=== PATIENT | male | born 1945 | race Caucasian/White ===

== ENCOUNTER 2017-11-13 19:28 | Emergency (ER) | payer MEDICARE, OTHER ==
[2017-11-13 20:02] VITALS: BP 145/72
--- NOTE | 2017-11-13 20:54 | EDM.PDOC ---
ED HPI GENERAL MEDICAL PROBLEM - General Chief Complaint: Genitourinary Problem Stated Complaint: TESTICULAR PAIN Time Seen by Provider: 11/13/17 20:40 Source of Information: Reports: Patient History Limitations: Reports: No Limitations - History of Present Illness INITIAL COMMENTS - FREE TEXT/NARRATIVE: c/o unable to void pt with laser prostate surgery 1d ago for BPH, pt removed toledo at 2 PM, voided okay, by suppertime he could not void came to ED, had a lot of pressure, he wanted to try to void one more time and a long blood clot came out then had a 2nd void in ED with a small amount of pink color, no additional clots pt lives near hospital, wants to come back if he has more difficulty, did not want a toledo placed now Groin Pain Score (Numeric/FACES): 3 - Related Data Allergies Allergy/AdvReac Type Severity Reaction Status Date / Time atorvastatin calcium AdvReac Mild muscle Verified 01/01/16 06:57 [From Lipitor] cramping rosuvastatin calcium AdvReac Mild muscle Verified 01/01/16 06:57 [From Crestor] cramping Home Meds: Home Meds Ascorbic Acid [C-1000] 1,000 mg PO DAILY 12/29/15 [History] Aspirin [Ecotrin] 325 mg PO DAILY 12/29/15 [History] Cyclobenzaprine [Flexeril] 20 mg PO BEDTIME 12/29/15 [History] Diclofenac Sodium [Voltaren] 75 mg PO BIDMEALS 12/29/15 [History] Furosemide [Lasix] 20 mg PO DAILY PRN 12/29/15 [History] Hydrochlorothiazide 25 mg PO DAILY 12/29/15 [History] Loratadine [Claritin] 10 mg PO DAILY PRN 12/29/15 [History] Losartan [Cozaar] 50 mg PO DAILY 12/29/15 [History] Nitroglycerin [Nitrostat] 0.4 mg SL ASDIRECTED PRN 12/29/15 [History] [place]-3/DHA/Epa/Fish Oil [Fish Oil 1,000 mg Softgel] 2 each PO DAILY 12/29/15 [ History] Pramipexole Di-HCl [Mirapex] 0.25 mg PO BEDTIME 12/29/15 [History] Pravastatin Sodium [Pravachol] 20 mg PO BID 12/29/15 [History] Tamsulosin [Tamsulosin 24 Hr] 0.4 mg PO DAILY 12/29/15 [History] Vitamin E 400 unit PO DAILY 12/29/15 [History] Past Medical History HEENT History: Reports: Other (See Below) Other HEENT History: has cataracts, no surgery yet Cardiovascular History: Reports: Bypass, High Cholesterol Other Cardiovascular History: BRADYCARDIA Other Respiratory History: HX OF LEFT LUNG WITH FLUID BUILD UP POST CARDIAC BYPASS WITH DRAINAGE REQUIRED Genitourinary History: Reports: Other (See Below) Other Genitourinary History: recent laser prostate surgery, in with retention, just "passes a clot" and peed, 290cc residual, will speak with md - Infectious Disease History Infectious Disease History: Reports: Chicken Pox, Measles, Mumps, Shingles - Past Surgical History HEENT Surgical History: Reports: Tonsillectomy Cardiovascular Surgical History: Reports: Coronary Artery Bypass GI Surgical History: Reports: Appendectomy, Cholecystectomy, Hernia, Inguinal Male Surgical History: Reports: Other (See Below) Other Male Surgeries/Procedures: laser prostate surgery Social & Family History - Family History Family Medical History: Noncontributory - Tobacco Use Smoking Status *Q: Former Smoker Years of Tobacco use: 5 Packs/Tins Daily: 0.5 Used Tobacco, but Quit: Yes Month Tobacco Last Used: Second Hand Smoke Exposure: No - Caffeine Use Caffeine Use: Reports: Coffee Caffeine Use Comment: 2 cups/day - Alcohol Use Days Per Week of Alcohol Use: 1 Number of Drinks Per Day: 1 Total Drinks Per Week: 1 Date of Last Drink: 10/27/17 Time of Last Drink: 20:00 - Recreational Drug Use Recreational Drug Use: No ED ROS GENERAL - Review of Systems Review Of Systems: See Below Constitutional: Reports: No Symptoms HEENT: Reports: No Symptoms Respiratory: Reports: No Symptoms Cardiovascular: Reports: No Symptoms Endocrine: Reports: No Symptoms GI/Abdominal: Reports: No Symptoms : Reports: Urinary Retention Musculoskeletal: Reports: No Symptoms Skin: Reports: No Symptoms Neurological: Reports: No Symptoms Psychiatric: Reports: No Symptoms Hematologic/Lymphatic: Reports: No Symptoms Immunologic: Reports: No Symptoms ED EXAM, GI/ABD - Physical Exam Exam: See Below Exam Limited By: No Limitations General Appearance: Alert GI/Abdominal Exam: Soft, Non-Tender, No Distention, No Mass, Other (no suprapubic tender) Back Exam: Normal Inspection, Full Range of Motion. No: CVA Tenderness (R), CVA Tenderness (L) Course - Vital Signs Last Recorded V/S: Last Vital Signs Temp 36.6 C 11/13/17 19:58 Pulse 50 L 11/13/17 19:58 Resp 18 11/13/17 19:58 BP 145/72 H 11/13/17 19:58 Pulse Ox 96 11/13/17 19:58 Departure - Departure Time of Disposition: 20:53 Disposition: Home, Self-Care 01 Condition: Good Clinical Impression: Postoperative urinary retention - Discharge Information Instructions: Acute Urinary Retention, Male Referrals: Niall Thompson MD [Primary Care Provider] - Additional Instructions: Return to ED if you have additional difficulty with voiding. See your urologist as scheduled.
== END 2017-11-13 20:57 | disposition home or self-care (01) ==
LOC: FB.ED 19:28
DX: N99.89 Other postprocedural complications and disorders of genitourinary system (principal); R33.9 Retention of urine, unspecified; Z87.891 Personal history of nicotine dependence; E78.00 Pure hypercholesterolemia, unspecified; Z79.82 Long term (current) use of aspirin; Z79.899 Other long term (current) drug therapy
CPT/HCPCS: 51798; 99282; 99283

== ENCOUNTER 2019-01-28 18:09 | Emergency (ER) | payer MEDICARE, OTHER ==
[2019-01-28] MEDS ORDERED: Sodium Chloride 0.9% 10 ML Syringe FLUSH PRN (18:32)
--- NOTE | 2019-01-28 18:39 | EDM.PDOC ---
ED HPI GENERAL MEDICAL PROBLEM - General Chief Complaint: Cardiovascular Problem Stated Complaint: CHEST PAIN Time Seen by Provider: 01/28/19 18:25 Source of Information: Reports: Patient, Family History Limitations: Reports: No Limitations - History of Present Illness INITIAL COMMENTS - FREE TEXT/NARRATIVE: Leland comes into [facility] ED with a brief episode of anterior sharp chest pains that lasted for less than a minute before subsiding. There was no associated SOB , palpitations, lt headiness, sweats, GI upset or cough. He reports a PMH of CAD , status post 3v CABG about 3 years ago in [place]. Of interest is a relapse of leg pains earlier today radiating from the ankles to the buttocks which improved with some stretches and ambulation. He has had similar pains in the past. There is no PMH of PVD or DVT. He was transferred by ambulance, administered ASA and TNG by EMS personnel. Upon arrival, he is asx. - Related Data Allergies Allergy/AdvReac Type Severity Reaction Status Date / Time atorvastatin calcium AdvReac Mild muscle Verified 01/28/19 18:37 [From Lipitor] cramping rosuvastatin calcium AdvReac Mild muscle Verified 01/28/19 18:37 [From Crestor] cramping Home Meds: Home Meds Ascorbic Acid [C-1000] 1,000 mg PO DAILY 12/29/15 [History] Aspirin [Ecotrin] 325 mg PO DAILY 12/29/15 [History] Furosemide [Lasix] 20 mg PO DAILY PRN 12/29/15 [History] Loratadine [Claritin] 10 mg PO DAILY PRN 12/29/15 [History] Losartan [Cozaar] 50 mg PO DAILY 12/29/15 [History] Nitroglycerin [Nitrostat] 0.4 mg SL ASDIRECTED PRN 12/29/15 [History] [place]-3/DHA/Epa/Fish Oil [Fish Oil 1,000 mg Softgel] 2 each PO DAILY 12/29/15 [ History] Pramipexole Di-HCl [Mirapex] 0.5 mg PO BEDTIME 12/29/15 [History] Pravastatin Sodium [Pravachol] 40 mg PO BID 12/29/15 [History] Vitamin E 400 unit PO DAILY 12/29/15 [History] Acetaminophen [Tylenol Extra Strength] 1,000 mg PO BID 01/28/19 [History] Celecoxib [CeleBREX] 200 mg PO DAILY 01/28/19 [History] Pramipexole Di-HCl [Mirapex] 0.25 mg PO DAILY PRN 01/28/19 [History] Past Medical History HEENT History: Reports: Other (See Below) Other HEENT History: has cataracts, no surgery yet Cardiovascular History: Reports: Bypass, High Cholesterol Other Cardiovascular History: BRADYCARDIA Other Respiratory History: HX OF LEFT LUNG WITH FLUID BUILD UP POST CARDIAC BYPASS WITH DRAINAGE REQUIRED Genitourinary History: Reports: Other (See Below) Other Genitourinary History: recent laser prostate surgery, in with retention, just "passes a clot" and peed, 290cc residual, will speak with md - Infectious Disease History Infectious Disease History: Reports: Chicken Pox, Measles, Mumps, Shingles - Past Surgical History HEENT Surgical History: Reports: Tonsillectomy Cardiovascular Surgical History: Reports: Coronary Artery Bypass GI Surgical History: Reports: Appendectomy, Cholecystectomy, Hernia, Inguinal Male Surgical History: Reports: Other (See Below) Other Male Surgeries/Procedures: laser prostate surgery Social & Family History - Family History Family Medical History: Noncontributory - Caffeine Use Caffeine Use: Reports: Coffee Caffeine Use Comment: 2 cups/day ED ROS GENERAL - Review of Systems Review Of Systems: See Below Constitutional: Reports: No Symptoms HEENT: Reports: No Symptoms Respiratory: Reports: No Symptoms Cardiovascular: Reports: Chest Pain Endocrine: Reports: No Symptoms GI/Abdominal: Reports: No Symptoms : Reports: No Symptoms Musculoskeletal: Reports: Leg Pain Skin: Reports: No Symptoms Neurological: Reports: No Symptoms Psychiatric: Reports: No Symptoms Hematologic/Lymphatic: Reports: No Symptoms Immunologic: Reports: No Symptoms ED EXAM, GENERAL - Physical Exam Exam: See Below Exam Limited By: No Limitations General Appearance: Alert, WD/WN, No Apparent Distress, Obese Eye Exam: Bilateral Eye: EOMI, Normal Inspection, PERRL Ears: Normal External Exam, Hearing Grossly Normal Nose: Normal Inspection Throat/Mouth: Normal Inspection, Normal Oropharynx, Normal Voice, No Airway Compromise Head: Normocephalic Neck: Normal Inspection, Supple, Non-Tender, Full Range of Motion Respiratory/Chest: No Respiratory Distress, Lungs Clear, Normal Breath Sounds, No Accessory Muscle Use, Chest Non-Tender Cardiovascular: No Murmur, Bradycardia, Other (edema 1+ R>L) GI/Abdominal: Normal Bowel Sounds, Soft, Non-Tender, No Organomegaly, No Distention, No Mass (Male) Exam: Deferred Rectal (Males) Exam: Deferred Back Exam: Normal Inspection Extremities: Normal Inspection Neurological: Alert, Oriented, CN II-XII Intact, Normal Cognition, Normal Gait, No Motor/Sensory Deficits Psychiatric: Normal Affect, Normal Mood Skin Exam: Warm, Dry, Intact, Normal Color, No Rash Lymphatic: No Adenopathy Course - Vital Signs Text/Narrative:: Leland remained stable at the [facility] ED. His Troponin I was 0.039, d dimer 0.82, CBC and CMP baseline. He has no clinical findings for DVT, but has agreed to come back in the am for repeat d dimer and possible LE doppler angio. Last Recorded V/S: Last Vital Signs Temp 36.5 C 01/28/19 18:10 Pulse 51 L 01/28/19 18:10 Resp 17 01/28/19 18:10 BP 148/58 H 01/28/19 18:10 Pulse Ox 98 01/28/19 18:10 - Orders/Labs/Meds Orders: Active Orders 24 hr Category Date Time Status EKG Documentation Completion [RC] ASDIRECTED Care 01/28/19 18:32 Active Sodium Chloride 0.9% [Saline Flush] Med 01/28/19 18:32 Active 10 ml FLUSH ASDIRECTED PRN Peripheral IV Insertion Adult [OM.PC] Routine Oth 01/28/19 18:32 Ordered EKG 12 Lead [EK] Routine Ther 01/28/19 18:32 Ordered Medication Orders Sodium Chloride (Saline Flush) 10 ml FLUSH ASDIRECTED PRN PRN Reason: Keep Vein Open Last Admin: 01/28/19 18:30 Dose: 10 ml Labs: Laboratory Tests 01/28/19 01/28/19 01/28/19 Range/Units 18:28 18:28 18:28 WBC 7.2 (4.5-12.0) X10-3/uL RBC 4.66 (4.30-5.75) x10(6)uL Hgb 13.7 (13.5-17.8) g/dL Hct 42.1 (30.0-51.3) % MCV 90.4 (80-96) fL MCH 29.4 (27.7-33.6) pg MCHC 32.6 (32.2-35.4) g/dL RDW 13.2 (11.5-15.5) % Plt Count 241 (125-369) X10(3)uL MPV 8.2 (7.4-10.4) fL Neut % (Auto) 50.6 (46-82) % Lymph % (Auto) 32.9 (13-37) % Kings % (Auto) 11.8 (4-12) % Eos % (Auto) 4 (1.0-5.0) % Baso % (Auto) 1 (0-2) % Neut # (Auto) 3.6 (1.6-8.3) # Lymph # (Auto) 2.4 (0.6-5.0) # Kings # (Auto) 0.8 (0.0-1.3) # Eos # (Auto) 0.3 (0.0-0.8) # Baso # (Auto) 0.1 (0.0-0.2) # D-Dimer, Quantitative 0.82 H (0.0-0.59) mg/LFEU Sodium 141 (135-145) mmol/L Potassium 4.1 (3.5-5.3) mmol/L Chloride 106 (100-110) mmol/L Carbon Dioxide 25 (21-32) mmol/L BUN 25 H (7-18) mg/dL Creatinine 1.2 (0.70-1.30) mg/dL Est Cr Clr Drug Dosing TNP Estimated GFR (MDRD) 59 L (>60) BUN/Creatinine Ratio 20.8 H (9-20) Glucose 122 H (80-116) mg/dL Calcium 8.6 (8.6-10.2) mg/dL Total Bilirubin 0.8 (0.1-1.3) mg/dL AST 35 H (5-25) IU/L ALT 91 H (12-36) U/L Alkaline Phosphatase 69 (56-112) IU/L Troponin I (<0.017-0.056) ng/mL Total Protein 6.5 (6.0-8.0) g/dL Albumin 3.5 (3.2-4.6) g/dL Globulin 3.0 g/dL Albumin/Globulin Ratio 1.2 03/28/ Range/Units 18:28 WBC (4.5-12.0) X10-3/uL RBC (4.30-5.75) x10(6)uL Hgb (13.5-17.8) g/dL Hct (30.0-51.3) % MCV (80-96) fL MCH (27.7-33.6) pg MCHC (32.2-35.4) g/dL RDW (11.5-15.5) % Plt Count (125-369) X10(3)uL MPV (7.4-10.4) fL Neut % (Auto) (46-82) % Lymph % (Auto) (13-37) % Kings % (Auto) (4-12) % Eos % (Auto) (1.0-5.0) % Baso % (Auto) (0-2) % Neut # (Auto) (1.6-8.3) # Lymph # (Auto) (0.6-5.0) # Kings # (Auto) (0.0-1.3) # Eos # (Auto) (0.0-0.8) # Baso # (Auto) (0.0-0.2) # D-Dimer, Quantitative (0.0-0.59) mg/LFEU Sodium (135-145) mmol/L Potassium (3.5-5.3) mmol/L Chloride (100-110) mmol/L Carbon Dioxide (21-32) mmol/L BUN (7-18) mg/dL Creatinine (0.70-1.30) mg/dL Est Cr Clr Drug Dosing Estimated GFR (MDRD) (>60) BUN/Creatinine Ratio (9-20) Glucose (80-116) mg/dL Calcium (8.6-10.2) mg/dL Total Bilirubin (0.1-1.3) mg/dL AST (5-25) IU/L ALT (12-36) U/L Alkaline Phosphatase (56-112) IU/L Troponin I 0.039 (<0.017-0.056) ng/mL Total Protein (6.0-8.0) g/dL Albumin (3.2-4.6) g/dL Globulin g/dL Albumin/Globulin Ratio Meds: Medications Generic Name Dose Route Start Last Admin Trade Name Tevinq PRN Reason Stop Dose Admin Sodium Chloride 10 ml 01/28/19 18:32 01/28/19 18:30 Saline Flush FLUSH 10 ml ASDIRECTED PRN Administration Keep Vein Open Departure - Departure Time of Disposition: 19:40 Disposition: Home, Self-Care 01 Condition: Good Clinical Impression: Atypical chest pain Referrals: Niall Thompson MD [Primary Care Provider] - Forms: ED Department Discharge - Problem List & Annotations (1) Atypical chest pain SNOMED Code(s): 303277413 Code(s): R07.89 - OTHER CHEST PAIN Status: Acute Current Visit: Yes Annotation/Comment:: Return to OP in am for repeat d-dimer and disposition. No other managment suggested pending results in am. - Problem List Review Problem List Initiated/Reviewed/Updated: Yes - My Orders Last 24 Hours: My Active Orders 01/28/19 18:32 EKG Documentation Completion [RC] ASDIRECTED Sodium Chloride 0.9% [Saline Flush] 10 ml FLUSH ASDIRECTED PRN Peripheral IV Insertion Adult [OM.PC] Routine EKG 12 Lead [EK] Routine - Assessment/Plan Last 24 Hours: My Active Orders 01/28/19 18:32 EKG Documentation Completion [RC] ASDIRECTED Sodium Chloride 0.9% [Saline Flush] 10 ml FLUSH ASDIRECTED PRN Peripheral IV Insertion Adult [OM.PC] Routine EKG 12 Lead [EK] Routine Plan: Follow up in am.
[2019-01-28 22:44] VITALS: BP 148/55
== END 2019-01-28 19:50 | disposition home or self-care (01) ==
LOC: FB.ED 18:09
DX: R07.89 Other chest pain (principal); E78.00 Pure hypercholesterolemia, unspecified; Z79.899 Other long term (current) drug therapy; Z88.8 Allergy status to other drugs, medicaments and biological substances; Z88.6 Allergy status to analgesic agent
CPT/HCPCS: 36415; 80053; 84484; 85025; 85379; 93005; 99285-25

== ENCOUNTER 2020-04-11 08:30 | Day surgery (SDC) | payer MEDICARE, OTHER ==
[~2020-04-11 08:30] MED LIST: Lactated Ringers 1,000 ML IV PRN; Sodium Chloride 0.9% 10 ML Syringe FLUSH PRN
[2020-04-11] MEDS ORDERED: Midazolam 1 MG/ML 2 ML SDV IV ONE (08:31)
[2020-04-11] MEDS ORDERED: fentaNYL 100 MCG/2 ML SDV IV ONE (08:31)
[2020-04-11] MEDS ORDERED: acetaZOLAMIDE 500 MG Cap.ER PO ONE (10:30)
[2020-04-11 16:45] VITALS: BP 143/74; PULSE 46
--- NOTE | 2020-04-12 15:07 | OR ---
DATE OF OPERATION: 04/11/2020 SURGEON: Bita Linder MD PREOPERATIVE DIAGNOSIS: Visually significant cataract, right eye. POSTOPERATIVE DIAGNOSIS: Visually significant cataract, right eye. PROCEDURES PERFORMED: Phacoemulsification with intraocular lens placement, right eye. ASSISTANTS: None. ANESTHESIA: Local with sedation. COMPLICATIONS: None. BLOOD LOSS: None. IMPLANTS: New ACU0T0 21.5 diopter lens implanted. CDE: 2.2. DESCRIPTION OF PROCEDURE: After risks and benefits were reviewed with the patient, consent was obtained in the preoperative area, and the operative eye was marked with a surgical pen. In the preoperative area, a pledget was used to dilate the pupil consisting of a mixture of phenylephrine 10%, cyclopentolate 2%, moxifloxacin 0.5%, and bupivacaine 0.75%. The patient was taken to the operating room, where a time-out was performed, and the patient was placed under monitored anesthesia care. Topical tetracaine was used for anesthesia. The operative eye was prepped and draped for ophthalmic surgery, and the microscope was brought into position and focused. A paracentesis incision was made, followed by injection of preservative-free 1% lidocaine into the anterior chamber, followed by injection of Viscoat into the anterior chamber. A microkeratome blade was used to make a corneal limbal incision temporally. A cystotome was used to make the beginning of the capsulorrhexis, which was carried around 360 degrees in a curvilinear fashion using Utrata forceps. A Farias cannula with BSS was used to hydrodissect and hydrodelineate the nucleus. The nucleus was removed in a divide and conquer manner using phacoemulsification. Irrigation and aspiration were used to remove the remaining cortical material. Provisc was used to inflate the capsular bag, and a pre-loaded New ACU0T0 21.5 diopter lens, serial number [id number] was injected into the capsular bag. A Sinskey hook was used to position and center the lens. Next, irrigation and aspiration was used to remove any remaining viscoelastic and cortical material from the anterior chamber. BSS on a cannula was used to inflate the anterior chamber and hydrate the wound. The wound was checked and found to be watertight. 1 mg of Moxifloxacin was injected into the anterior chamber. Drapes were removed and the eye was cleaned. A drop of brimonidine 0.15% and a drop of TobraDex was placed. The eye was shielded, and the patient was taken to the recovery room in stable condition. CC: MD MEL HURTADO OD /[id number] ADRIEL/DOROTHEA
== END 2020-04-11 10:56 | disposition home or self-care (01) ==
LOC: FB.SDS 08:30
PROVIDERS: ATTEND Ophthalmology
DX: H25.813 Combined forms of age-related cataract, bilateral (principal); H02.886 Meibomian gland dysfunction of left eye, unspecified eyelid; H02.883 Meibomian gland dysfunction of right eye, unspecified eyelid; H52.203 Unspecified astigmatism, bilateral; I10 Essential (primary) hypertension; I25.10 Atherosclerotic heart disease of native coronary artery without angina pectoris; G47.33 Obstructive sleep apnea (adult) (pediatric); Z79.899 Other long term (current) drug therapy; Z79.82 Long term (current) use of aspirin; Z88.8 Allergy status to other drugs, medicaments and biological substances; Z87.891 Personal history of nicotine dependence
CPT/HCPCS: 66984; A9270; J2250; J3010; V2632; 00142-QZ

== ENCOUNTER 2020-04-25 08:00 | Day surgery (SDC) | payer MEDICARE, OTHER ==
[2020-04-25] MEDS ORDERED: Lactated Ringers 1,000 ML IV ONE (08:01)
[2020-04-25] MEDS ORDERED: fentaNYL 100 MCG/2 ML SDV IV ONE (08:01)
[2020-04-25] MEDS ORDERED: Midazolam 1 MG/ML 2 ML SDV IV ONE (08:01)
[2020-04-25] MEDS ORDERED: Lactated Ringers 1,000 ML IV PRN (09:30)
[2020-04-25] MEDS ORDERED: Sodium Chloride 0.9% 10 ML Syringe FLUSH PRN (09:30)
[2020-04-25] MEDS ORDERED: acetaZOLAMIDE 500 MG Cap.ER PO ONE (10:00)
[2020-04-25 10:15] VITALS: BP 138/69; PULSE 55
--- NOTE | 2020-04-25 12:39 | OR ---
DATE OF OPERATION: 04/25/2020 SURGEON: Bita Linder MD PREOPERATIVE DIAGNOSIS: Visually significant cataract, left eye. POSTOPERATIVE DIAGNOSIS: Visually significant cataract, left eye. PROCEDURES PERFORMED: Phacoemulsification with intraocular lens placement, left eye. ASSISTANTS: None. ANESTHESIA: Local with sedation. COMPLICATIONS: None. BLOOD LOSS: None. IMPLANTS: New ACU0T0 22.0 diopter lens implanted. CDE: 2.60. DESCRIPTION OF PROCEDURE: After risks and benefits were reviewed with the patient, consent was obtained in the preoperative area, and the operative eye was marked with a surgical pen. In the preoperative area, a pledget was used to dilate the pupil consisting of a mixture of phenylephrine 10%, cyclopentolate 2%, moxifloxacin 0.5%, and bupivacaine 0.75%. The patient was taken to the operating room, where a time-out was performed, and the patient was placed under monitored anesthesia care. Topical tetracaine was used for anesthesia. The operative eye was prepped and draped for ophthalmic surgery, and the microscope was brought into position and focused. A paracentesis incision was made, followed by injection of preservative-free 1% lidocaine into the anterior chamber, followed by injection of Viscoat into the anterior chamber. A microkeratome blade was used to make a corneal limbal incision temporally. A cystotome was used to make the beginning of the capsulorrhexis, which was carried around 360 degrees in a curvilinear fashion using Utrata forceps. A Farias cannula with BSS was used to hydrodissect and hydrodelineate the nucleus. The nucleus was removed in a divide and conquer manner using phacoemulsification. Irrigation and aspiration were used to remove the remaining cortical material. Provisc was used to inflate the capsular bag, and a pre-loaded New ACU0T0 22.0 diopter lens, serial #[id number] was injected into the capsular bag. A Sinskey hook was used to position and center the lens. Next, irrigation and aspiration was used to remove any remaining viscoelastic and cortical material from the anterior chamber. BSS on a cannula was used to inflate the anterior chamber and hydrate the wound. The wound was checked and found to be watertight. 1 mg of Moxifloxacin was injected into the anterior chamber. Drapes were removed and the eye was cleaned. A drop of brimonidine 0.15% and a drop of TobraDex was placed. The eye was shielded, and the patient was taken to the recovery room in stable condition. CC: CHOCO ALDRIDGE MD /[id number] ADRIEL/DOROTHEA
== END 2020-04-25 10:27 | disposition home or self-care (01) ==
LOC: FB.SDS 08:00
PROVIDERS: ATTEND Ophthalmology
DX: H25.813 Combined forms of age-related cataract, bilateral (principal); I10 Essential (primary) hypertension; I25.10 Atherosclerotic heart disease of native coronary artery without angina pectoris; G47.33 Obstructive sleep apnea (adult) (pediatric); H02.886 Meibomian gland dysfunction of left eye, unspecified eyelid; H02.883 Meibomian gland dysfunction of right eye, unspecified eyelid; H52.203 Unspecified astigmatism, bilateral; Z88.8 Allergy status to other drugs, medicaments and biological substances; Z79.899 Other long term (current) drug therapy; Z87.891 Personal history of nicotine dependence
CPT/HCPCS: 00142; 66984; A9270; J2250; J3010; J7120; V2632

== ENCOUNTER 2020-08-01 13:21 | Emergency (ER) | payer MEDICARE, OTHER ==
[2020-08-01] MEDS ORDERED: Sodium Chloride 0.9% 10 ML Syringe FLUSH PRN (13:44)
[2020-08-01] MEDS ORDERED: Aspirin 81 MG Tab.Chew PO ONE (13:48)
[2020-08-01 14:08] VITALS: BP 140/65; PULSE 53
--- NOTE | 2020-08-01 14:48 | CR ---
INDICATION: Chest pain. CHEST ONE VIEW: AP upright portable view of the chest 08/01/20 was compared with 03/19/09. Increased density is noted overlying the left mid to lower lung field with indistinctness of the left heart border suggesting a consolidating pneumonia and/or atelectasis in the left upper lobe - lingula and possibly extending into the left lower lobe. When clinically possible, PA and lateral views of the chest may be helpful fur further evaluation of this finding. Heart size is difficult to evaluate. Median sternotomy is noted since the previous study. Overlying EKG leads are noted. The right lung and pleural space were unremarkable. IMPRESSION: Possible consolidating pneumonia in the left upper lobe and lingula. Atelectasis could also be present. MTDD
--- NOTE | 2020-08-01 14:51 | EDM.PDOC ---
ED HPI GENERAL MEDICAL PROBLEM - General Stated Complaint: CHEST PAIN Time Seen by Provider: 08/01/20 13:30 Source of Information: Reports: Patient History Limitations: Reports: No Limitations - History of Present Illness INITIAL COMMENTS - FREE TEXT/NARRATIVE: Patient presented to the ED because of sudden onset of chest pain, pressure, 9/10. He took 1 NTG SL and his pain is down to 2/10. There is associated dyspnea, no nausea,vomiting or diaphoresis. He has a history of CAD with CABG. Treatments [employer]: Reports: Nitroglycerin - Related Data Allergies Allergy/AdvReac Type Severity Reaction Status Date / Time atorvastatin calcium AdvReac Mild muscle Verified 04/25/20 08:24 [From Lipitor] cramping rosuvastatin calcium AdvReac Mild muscle Verified 04/25/20 08:24 [From Crestor] cramping pravastatin AdvReac Muscle Verified 04/25/20 08:24 Aches Home Meds: Home Meds Ascorbic Acid [C-1000] 1,000 mg PO DAILY 12/29/15 [History] Aspirin [Ecotrin] 325 mg PO DAILY 12/29/15 [History] Losartan [Cozaar] 100 mg PO DAILY 12/29/15 [History] Nitroglycerin [Nitrostat] 0.4 mg SL ASDIRECTED PRN 12/29/15 [History] [place]-3/DHA/Epa/Fish Oil [Fish Oil 1,000 mg Softgel] 1,000 each PO BID 12/29/15 [History] Pramipexole Di-HCl [Mirapex] 0.5 mg PO BEDTIME 12/29/15 [History] Vitamin E 400 unit PO DAILY 12/29/15 [History] Celecoxib [CeleBREX] 200 mg PO DAILY 01/28/19 [History] Pramipexole Di-HCl [Mirapex] 0.25 mg PO DAILY PRN 01/28/19 [History] Ezetimibe [Zetia] 10 mg PO DAILY 04/10/20 [History] allopurinoL [Zyloprim] 300 mg PO DAILY 04/10/20 [History] hydroCHLOROthiazide [Hydrochlorothiazide] 25 mg PO DAILY 04/10/20 [History] Past Medical History HEENT History: Reports: Cataract, Hard of Hearing, Impaired Vision, Other (See Below) Other HEENT History: R POSTERIOR VITREOUS DETACHMENT Cardiovascular History: Reports: Arrhythmia, Bypass, CAD, High Cholesterol, Hypertension, PR, Other (See Below) Other Cardiovascular History: BRADYCARDIA Respiratory History: Reports: Sleep Apnea Other Respiratory History: HX OF LEFT LUNG WITH FLUID BUILD UP POST CARDIAC BYPASS WITH DRAINAGE REQUIRED Genitourinary History: Reports: Prostate Disorder, Other (See Below) Other Genitourinary History: BLADDER DIVERTICULI. NEPTALI. BLADDER NECK CONTRACTURE. FREQUENCY Musculoskeletal History: Reports: Osteoarthritis Other Musculoskeletal History: sciatic pain. RLS Neurological History: Reports: None Psychiatric History: Reports: None Endocrine/Metabolic History: Reports: Obesity/BMI 30+ Hematologic History: Reports: None Immunologic History: Reports: None Oncologic (Cancer) History: Reports: None Dermatologic History: Reports: None - Infectious Disease History Infectious Disease History: Reports: Chicken Pox, Measles, Mumps, Shingles - Past Surgical History Head Surgeries/Procedures: Reports: None HEENT Surgical History: Reports: Cataract Surgery, Tonsillectomy Cardiovascular Surgical History: Reports: Coronary Artery Bypass, Other (See Below) Other Cardiovascular Surgeries/Procedures: CABG X3 GI Surgical History: Reports: Appendectomy, Cholecystectomy, Colonoscopy, Edilson ia, Inguinal Male Surgical History: Reports: TURP-Transurethral Resection of Prostate, Other (See Below) Other Male Surgeries/Procedures: laser prostate surgery. CYSTOSCOPY WITH URETHROTOMY Endocrine Surgical History: Reports: None Neurological Surgical History: Reports: None Musculoskeletal Surgical History: Reports: Arthroscopic Knee, Other (See Below) Other Musculoskeletal Surgeries/Procedures:: TRIGGER FINGER RELEASE LEFT MIDDLE FINGER. BILAT KNEE SCOPES Oncologic Surgical History: Reports: None Dermatological Surgical History: Reports: None Social & Family History - Family History Family Medical History: Noncontributory - Caffeine Use Caffeine Use: Reports: Coffee, Tea Caffeine Use Comment: 2 cups/day ED ROS GENERAL - Review of Systems Review Of Systems: See Below Constitutional: Reports: No Symptoms HEENT: Reports: No Symptoms Respiratory: Reports: No Symptoms Cardiovascular: Reports: Chest Pain Endocrine: Reports: No Symptoms GI/Abdominal: Reports: No Symptoms : Reports: No Symptoms Musculoskeletal: Reports: No Symptoms Skin: Reports: No Symptoms Neurological: Reports: No Symptoms Psychiatric: Reports: No Symptoms ED EXAM, GENERAL - Physical Exam Exam: See Below Exam Limited By: No Limitations General Appearance: Alert, No Apparent Distress Eye Exam: Bilateral Eye: PERRL Ears: Normal External Exam, Normal Canal, Hearing Grossly Normal Nose: Normal Inspection, Normal Mucosa, No Blood Throat/Mouth: Normal Inspection, Normal Lips, Normal Teeth, Normal Gums Head: Atraumatic, Normocephalic Neck: Normal Inspection, Supple, Non-Tender, Full Range of Motion Respiratory/Chest: No Respiratory Distress, Lungs Clear, Normal Breath Sounds, No Accessory Muscle Use, Chest Non-Tender Cardiovascular: Normal Peripheral Pulses, Regular Rate, Rhythm, No Edema, No Gallop, No Murmur GI/Abdominal: Normal Bowel Sounds, Soft, Non-Tender, No Organomegaly Back Exam: Normal Inspection, Full Range of Motion Extremities: Normal Inspection, Normal Range of Motion, Non-Tender Neurological: Alert, Oriented, CN II-XII Intact, Normal Cognition, Normal Gait Psychiatric: Normal Affect, Normal Mood Skin Exam: Warm, Dry, Normal Color Course - Vital Signs Text/Narrative:: Labs/EKG/CXR was discussed with patient EKG-NSR Trop-neg CXR-neg Last Recorded V/S: Last Vital Signs Temp 36.4 C 08/01/20 13:21 Pulse 53 L 08/01/20 13:21 Resp 16 08/01/20 13:21 BP 140/65 08/01/20 13:21 Pulse Ox 98 08/01/20 13:21 - Orders/Labs/Meds Orders: Active Orders 24 hr Category Date Time Status Saline Lock Insert [OM.PC] Routine Oth 08/01/20 13:44 Ordered EKG 12 Lead [EK] Routine Ther 08/01/20 13:44 Ordered Labs: Laboratory Tests 08/01/20 08/01/20 08/01/20 Range/Units 13:25 13:25 13:25 WBC 6.8 (4.5-12.0) X10-3/uL RBC 4.72 (4.30-5.75) x10(6)uL Hgb 14.1 (13.5-17.8) g/dL Hct 44.1 (30.0-51.3) % MCV 93.5 (80-96) fL MCH 29.9 (27.7-33.6) pg MCHC 32.0 L (32.2-35.4) g/dL RDW 13.3 (11.5-15.5) % Plt Count 243 (125-369) X10(3)uL MPV 7.6 (7.4-10.4) fL Neut % (Auto) 51.3 (46-82) % Lymph % (Auto) 33.5 (13-37) % [place] % (Auto) 11.5 (4-12) % Eos % (Auto) 3 (1.0-5.0) % Baso % (Auto) 1 (0-2) % Neut # (Auto) 3.5 (1.6-8.3) # Lymph # (Auto) 2.3 (0.6-5.0) # [place] # (Auto) 0.8 (0.0-1.3) # Eos # (Auto) 0.2 (0.0-0.8) # Baso # (Auto) 0.0 (0.0-0.2) # PT (9.0-11.1) sec INR (1.00-1.24) APTT (24.4-33.2) SECONDS Sodium 140 (135-145) mmol/L Potassium 4.1 (3.5-5.3) mmol/L Chloride 104 (100-110) mmol/L Carbon Dioxide 26 (21-32) mmol/L BUN 22 H (7-18) mg/dL Creatinine 1.1 (0.70-1.30) mg/dL Est Cr Clr Drug Dosing TNP Estimated GFR (MDRD) > 60 (>60) BUN/Creatinine Ratio 20.0 (9-20) Glucose 108 (80-116) mg/dL Calcium 9.0 (8.6-10.2) mg/dL Total Bilirubin 1.2 (0.1-1.3) mg/dL AST 56 H D (5-25) IU/L ALT 104 H D (12-36) U/L Alkaline Phosphatase 75 (56-112) IU/L Troponin I 17.0 (4.0-60.3) pg/mL NT-Pro-B Natriuret Pep 111 (<=450) pg/mL Total Protein 6.7 (6.0-8.0) g/dL Albumin 3.7 (3.2-4.6) g/dL Globulin 3.0 g/dL Albumin/Globulin Ratio 1.2 //20 Range/Units 13:25 WBC (4.5-12.0) X10-3/uL RBC (4.30-5.75) x10(6)uL Hgb (13.5-17.8) g/dL Hct (30.0-51.3) % MCV (80-96) fL MCH (27.7-33.6) pg MCHC (32.2-35.4) g/dL RDW (11.5-15.5) % Plt Count (125-369) X10(3)uL MPV (7.4-10.4) fL Neut % (Auto) (46-82) % Lymph % (Auto) (13-37) % [place] % (Auto) (4-12) % Eos % (Auto) (1.0-5.0) % Baso % (Auto) (0-2) % Neut # (Auto) (1.6-8.3) # Lymph # (Auto) (0.6-5.0) # [place] # (Auto) (0.0-1.3) # Eos # (Auto) (0.0-0.8) # Baso # (Auto) (0.0-0.2) # PT 10.1 (9.0-11.1) sec INR 0.94 L (1.00-1.24) APTT 23.0 L (24.4-33.2) SECONDS Sodium (135-145) mmol/L Potassium (3.5-5.3) mmol/L Chloride (100-110) mmol/L Carbon Dioxide (21-32) mmol/L BUN (7-18) mg/dL Creatinine (0.70-1.30) mg/dL Est Cr Clr Drug Dosing Estimated GFR (MDRD) (>60) BUN/Creatinine Ratio (9-20) Glucose (80-116) mg/dL Calcium (8.6-10.2) mg/dL Total Bilirubin (0.1-1.3) mg/dL AST (5-25) IU/L ALT (12-36) U/L Alkaline Phosphatase (56-112) IU/L Troponin I (4.0-60.3) pg/mL NT-Pro-B Natriuret Pep (<=450) pg/mL Total Protein (6.0-8.0) g/dL Albumin (3.2-4.6) g/dL Globulin g/dL Albumin/Globulin Ratio Meds: Medications Discontinued Medications Generic Name Dose Route Start Last Admin Trade Name Garcia PRN Reason Stop Dose Admin Aspirin 324 mg 08/01/20 13:48 08/01/20 14:01 Aspirin PO 08/01/20 13:49 324 mg ONETIME ONE Administration Sodium Chloride 10 ml 08/01/20 13:44 Saline Flush FLUSH ASDIRECTED PRN Keep Vein Open Departure - Departure Time of Disposition: 15:00 Disposition: Home, Self-Care 01 Condition: Good Clinical Impression: Chest pain Instructions: Angina, [id number] Referrals: Niall Thompson MD [Primary Care Provider] - Forms: ED Department Discharge Additional Instructions: Please read discharge instructions on chest pain Take your Nitro as prescribed Keep ypour upcoming appointment to see your workers compensation defense attorney Sepsis Event Note (ED) - Evaluation Sepsis Screening Result: No Definite Risk - My Orders Last 24 Hours: My Active Orders 08/01/20 13:44 Saline Lock Insert [OM.PC] Routine EKG 12 Lead [EK] Routine - Assessment/Plan Last 24 Hours: My Active Orders 08/01/20 13:44 Saline Lock Insert [OM.PC] Routine EKG 12 Lead [EK] Routine
[2020-08-02] MEDS ORDERED: Aspirin 81 MG Tab.Chew PO ONE (12:28)
== END 2020-08-01 15:08 | disposition home or self-care (01) ==
LOC: FB.ED 13:21
DX: R07.9 Chest pain, unspecified (principal); E78.00 Pure hypercholesterolemia, unspecified; I10 Essential (primary) hypertension; I25.2 Old myocardial infarction; M19.90 Unspecified osteoarthritis, unspecified site; E66.9 Obesity, unspecified; I25.810 Atherosclerosis of coronary artery bypass graft(s) without angina pectoris; Z90.89 Acquired absence of other organs; Z90.49 Acquired absence of other specified parts of digestive tract; Z88.8 Allergy status to other drugs, medicaments and biological substances; Z79.82 Long term (current) use of aspirin; Z79.899 Other long term (current) drug therapy; Z68.36 Body mass index [BMI] 36.0-36.9, adult
CPT/HCPCS: 36415; 71045; 80053; 83880; 84484; 85025; 85610; 85730; 93005; 99285-25; A9270-GY